=== PATIENT | male | born 1960 | race American Indian/Alaskan Native ===

== ENCOUNTER 2018-06-02 07:18 | Day surgery (SDC) | payer MEDICAID ==
[~2018-06-02 07:18] MED LIST: ANCEF/STERILE WATER 2 GM/20 ML IV NR; GENTAMICIN/NS 80 MG/100 ML 100 ML IV SCH
[2018-06-02] MEDS ORDERED: LACTATED RINGERS 1,000 ML IV SCH (07:49)
--- NOTE | 2018-06-02 08:15 | Anesthesia Consultation ---
Anesthesia Consult and Med Hx Date of service: 06/02/18 (General, LMA) - Airway Anesthetic Teeth Evaluation: Poor, Edentulous ROM Head & Neck: Adequate Mental/Hyoid Distance: Adequate Mallampati Class: Class III Intubation Access Assessment: Possibly Difficult - Pulmonary Exam CTA: Yes - Cardiac Exam Cardiac Exam: RRR - Pre-Operative Health Status ASA Pre-Surgery Classification: ASA3 Proposed Anesthetic Plan: General - Pulmonary Hx Smoking: No Hx Asthma: No Hx Respiratory Symptoms: No Hx Sleep Apnea: No (SARITHA PRE SCREEN HIGH RISK) - Cardiovascular System Hx Hypertension: Yes (No meds today) Hx Heart Attack/AMI: No Hx Cardia Arrhythmia: No - Central Nervous System Hx Neuromuscular Disorder: Yes (Developmental delay) Hx Psychiatric Problems: Yes (Developmental delay) - Gastrointestinal Hx Gastroesophageal Reflux Disease: No - Endocrine Hx Renal Disease: No Hx Liver Disease: No Hx Insulin Dependent Diabetes: No Hx Non-Insulin Dependent Diabetes: No - Hematic Hx Sickle Cell Disease: No - Other Systems Hx Cancer: No - Additional Comments Anesthesia Medical History Comments: No GAC, No FHAC
--- NOTE | 2018-06-02 08:16 | Anesthesia Day of Surgery ---
Anesthesia Day of Surgery - Day of Surgery Patient Examined: Yes Patient H&P Reviewed: Yes Patient is NPO: Yes (@1800) Beta Blockers: No (n/a) Cardiac Clearance: No (n/a) Pulmonary Clearance: No (n/a)
[2018-06-02] MEDS ORDERED: VERSED PO NR (08:32)
[2018-06-02] MEDS ORDERED: SUBLIMAZE ONE (08:35)
[2018-06-02] MEDS ORDERED: DIPRIVAN 10 MG/ML IV ONE (08:35)
[2018-06-02] MEDS ORDERED: NEO SYNEPHRINE/NS Syringe(OR USE) IV ONE ×2 (09:43)
[2018-06-02] MEDS ORDERED: WATER FOR IRRIG STERILE IR ONE (09:45)
--- NOTE | 2018-06-02 09:48 | Short Stay Summary ---
Short Stay Documentation Date of service: 06/02/18 - History H&P: obtained from office - Allergies and Medications Current Medications: Allergies diazepam Allergy (Verified 05/29/18 13:00) Unknown droperidol Allergy (Verified 06/02/18 08:51) Rash Home Medications Medication Instructions Recorded Confirmed Last Taken Type HYDROcodone/ACETAMINOPHEN [[employer] 1 each PO PRN PRN 05/29/18 06/02/18 06/01/18 21:00 History 5-325 Tablet] Lisinopril [Qbrelis] 10 mg PO DAILY 05/29/18 06/02/18 06/01/18 21:00 History Multivit-Mins/Iron/Folic/Lycop 1 each PO DAILY 05/29/18 06/02/18 06/01/18 21:00 History [Centrum Men's Tablet] OXcarbazepine [Trileptal] 300 mg PO BID 05/29/18 06/02/18 06/01/18 History Sulfamethoxazole/Trimethoprim 800 mg PO BID 05/29/18 06/02/18 06/01/18 History [Bactrim DS TAB] diphenhydrAMINE [Benadryl CAP] 25 mg PO Q8HR PRN 05/29/18 06/02/18 06/01/18 21:00 History Active Medications Cefazolin Sodium (Ancef/Sterile Water 2 Gm/20 Ml) 2 gm IV PREOP NR Stop: 06/02/18 23:59 Gentamicin Sulfate/Sodium Chloride (Garamycin/Ns 80 Mg/100 Ml) 100 mls @ 200 mls/hr IV PREOP AMANDA Stop: 06/02/18 23:59 Lactated Ringer's (Lactated Ringers) 1,000 mls @ 75 mls/hr IV DIRECT AMANDA Stop: 06/02/18 23:59 Last Admin: 06/02/18 08:42 Dose: 75 mls/hr Documented by: Midazolam HCl (Versed) 20 mg PO PREOP NR Stop: 06/02/18 23:59 Last Admin: 06/02/18 08:42 Dose: 20 mg Documented by: - Brief post op/procedure progress note Date of procedure: 06/02/18 Pre-op diagnosis: elevated psa, bph Post-op diagnosis: same Procedure: cysto, rpg, pus bx (10cc) Anesthesia: GETA, MAC Surgeon: HUI AMBROCIO Pathology: list (prostate cores) Specimen disposition: to lab Condition: stable - Hospital course Hospital course: pt has scripts at home - Disposition Condition at discharge: Stable Disposition: DC-01 TO HOME OR SELFCARE Short Stay Discharge Plan Follow up with: JOHNSON MULLINS MD [Primary Care Provider] - 7 Days
[2018-06-02] MEDS ORDERED: FLOMAX PO SCH (10:00)
--- NOTE | 2018-06-02 11:02 | Operative Report ---
PREOPERATIVE DIAGNOSES: Elevated PSA, BPH. POSTOPERATIVE DIAGNOSES: Elevated PSA, BPH. PROCEDURE: Cystoscopy, bilateral retrograde pyelograms, transrectal ultrasound, biopsy of prostate. SURGEON: Toño Cuenca MD ANESTHESIA: General. ESTIMATED BLOOD LOSS: Minimal. FLUIDS: Crystalloid. COMPLICATIONS: No complications. 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 He has special needs. He has an elevated PSA of 4.7, repeat was 5.2. Also, has some mild prostatism. He presents now for surgical intervention. DESCRIPTION OF PROCEDURE: The patient was taken to the operative suite, placed in a supine position. After adequate general anesthesia, placed in a dorsal lithotomy position, prepped and draped in a sterile fashion. Pancystourethroscopy was performed with a 22-Green[place] Storz cystoscope, no urethral abnormalities. His prostate displayed some mild trilobar prostatic obstruction, both ureteral orifices in normal position. No tumors or stones were noted. Bilateral retrograde pyelograms were obtained with an 8-Green[place] catheter and 8 mL of contrast. No filling defects or obstruction. Next, using a transrectal ultrasound 3D measurements of the prostate was obtained. Total volume of 10 mL. Template biopsy of 12 cores were obtained without difficulty. Rectal exam was benign. The patient was extubated, taken to recovery room in stable condition. The patient has Bactrim and [place]. He will be given one Flomax in the hospital. JOB# [id number] ALEA/CINDI
[2018-06-02 11:10] VITALS: BP 125/74
--- NOTE | 2018-06-02 12:37 | Post Anesthesia Evaluation ---
- Post Anesthesia Evaluation Patient Participated: Yes Airway Patent: Yes Stable Respiratory Function: Yes Nausea/Vomiting: No Temp > 96.8F: Yes Pain Manageable: Yes Adequeate Hydration: Yes Anesthesia Complications: No
--- NOTE | 2018-06-03 07:32 | Fluoroscopy Report ---
FLUOROSCOPY RETROGRADE UROGRAPHY: HISTORY: Elevated PSA. FINDINGS: Fluoroscopy was provided by radiology during retrograde urography by the urologist. 9 fluoroscopic images were captured. There is adequate filling of the ureters and intrarenal collecting systems with no filling defects or anatomic abnormalities identified. Please correlate with the procedural report if needed. IMPRESSION: Retrograde pyelograms within normal limits.
--- NOTE | 2018-06-04 23:14 | Ultrasound Report ---
PROCEDURE: ULTRASOUND TRANSRECTAL TECHNIQUE: Ultrasound for prostate biopsy obtained. HISTORY: ELEVATED PSA; PROSTATE BX COMPARISONS: None FINDINGS: Successful prostate biopsy. Prostatic volume is 10.5 cc. IMPRESSION: Successful prostate biopsy.. This document is electronically signed by Fifi Mitchell MD., June 04 2018 11:12:04 PM ET
== END 2018-06-02 12:05 | disposition home or self-care (01) ==
LOC: OR 07:18
PROVIDERS: ATTEND Urology
DX: N40.0 Benign prostatic hyperplasia without lower urinary tract symptoms (principal); I10 Essential (primary) hypertension; Z88.8 Allergy status to other drugs, medicaments and biological substances; Z79.899 Other long term (current) drug therapy
CPT/HCPCS: 52005; 55700; 74420; 76872; 88305; 88344; A4217; C1758; J0690; J1580; J2370; J2704; J3010; J7120; Q9967; 88307; 88342

== ENCOUNTER 2021-09-20 07:23 | Day surgery (SDC) | payer MEDICAID ==
[~2021-09-20 07:23] MED LIST changes: -ANCEF/STERILE WATER 2 GM/20 ML IV NR; -GENTAMICIN/NS 80 MG/100 ML 100 ML IV SCH; +SODIUM CHLORIDE 0.9% 1000 ML 1,000 ML IV SCH
--- NOTE | 2021-09-20 08:24 | Anesthesia Consultation ---
Anesthesia Consult and Med Hx Date of service: 09/20/21 - Airway Anesthetic Teeth Evaluation: Poor (some missing teeth according to social service assistant) ROM Head & Neck: Adequate Mental/Hyoid Distance: Adequate Mallampati Class: Class II (presumably, patient does not cooperate to open his mouth) Intubation Access Assessment: Probably Good - Pre-Operative Health Status ASA Pre-Surgery Classification: ASA2 Proposed Anesthetic Plan: MAC - Pulmonary Hx Smoking: No Hx Asthma: No Hx Respiratory Symptoms: No Hx Sleep Apnea: No (SARITHA PRE SCREEN HIGH RISK) - Cardiovascular System Hx Hypertension: Yes (No meds today) Hx Heart Attack/AMI: No Hx Cardia Arrhythmia: No - Central Nervous System Hx Neuromuscular Disorder: Yes (Developmental delay) Hx Psychiatric Problems: Yes (Developmental delay) - Gastrointestinal Hx Ulcer: No (lower GI bleeding) Hx Gastroesophageal Reflux Disease: No - Endocrine Hx Renal Disease: No Hx Liver Disease: No Hx Insulin Dependent Diabetes: No Hx Non-Insulin Dependent Diabetes: No - Hematic Hx Sickle Cell Disease: No - Other Systems Hx Cancer: No
--- NOTE | 2021-09-20 08:25 | Anesthesia Day of Surgery ---
Anesthesia Day of Surgery - Day of Surgery Patient Examined: Yes Patient H&P Reviewed: Yes Patient is NPO: Yes
[2021-09-20] MEDS ORDERED: propofoL 200 MG/20 ML VIAL IV ONE (08:30)
[2021-09-20] MEDS ORDERED: LIDOCAINE MPF (2%) 20 MG/1 ML VIAL 5 ML ONE (08:33)
[2021-09-20] MEDS ORDERED: PHENYLEPHRINE/NS 1,000 MCG/10 ML SYRINGE (OR USE) IV ONE (08:58)
--- NOTE | 2021-09-20 09:09 | Operative Report ---
Operative Report Operative Report: DOS: 09/20/21 SURGEON: Gaetano Neely MD COLONOSCOPY with hemorrhoidectomy REPORT PREOPERATIVE AND POSTOPERATIVE DIAGNOSIS: rectal bleeding DESCRIPTION OF PROCEDURE: The colonoscope was passed to the cecum as identified by the ileocecal valve and appendiceal orifice. Scope was carefully withdrawn. Retroflexion was performed in the rectum. At the end of procedure, the scope was cleaned using normal technique. Vital signs monitored continuously throughout. SEDATION: Provided by Anesthesiology Services. Quality of the prep was fair COMPLICATIONS: None. ESTIMATED BLOOD LOSS: none FINDINGS: * Scattered stool throughout the colon * 3 columns Internal grade 2 hemorrhoids RP, RA, and LL seen with the co lonoscopy. the hemorrhoids were banded with total 3 bands placed; the colonoscope was removed, and an EGD scope was used with a 7-shooter research chief engineer in place on it, banded under direct visualization with total of 3 bands placed one each on the RA, RP, and LL position without difficulty. Confirmed in place using visualization and confirmation with GITA. * Remainder of exam was unremarkable RECOMMENDATIONS: Bleeding consistent due to hemorrhoids which were treated Regarding CRC screening, due to limited prep recommend annual FIT testing starting in 1 year Return to clinic as needed
[2021-09-20 16:39] VITALS: BP 120/68
== END 2021-09-20 09:40 | disposition home or self-care (01) ==
LOC: GIO 07:23
PROVIDERS: ATTEND Student in an Organized Health Care Education/Training Program
DX: K62.5 Hemorrhage of anus and rectum (principal); K64.8 Other hemorrhoids; I10 Essential (primary) hypertension; Z88.8 Allergy status to other drugs, medicaments and biological substances; Z79.899 Other long term (current) drug therapy; Z98.890 Other specified postprocedural states; Z86.010 Personal history of colon polyps
CPT/HCPCS: 45398; J2370; J2704; J7030